=== PATIENT | male | born 1975 | race Caucasian/White ===

== ENCOUNTER 2017-02-03 11:36 | Emergency (ER) | payer SELFPAY ==
[2017-02-03] MEDS ORDERED: PREDNISONE 20 MG TABLET ONE (12:31)
[2017-02-03] MEDS ORDERED: HYDROCODONE/ACETAMINOPHEN 5/325MG TABLET ONE (12:31)
--- NOTE | 2017-02-03 13:18 | RAD ---
Exam: Pelvis and two-view right hip COMPARISON: None INDICATION: Right hip pain for 2 days. Findings: An AP view of the pelvis and AP and frog-leg lateral views of the right hip were obtained. Overall normal bone mineralization. Prominent cortical bone is noted along the lateral aspect of the femoral head and neck junctions bilaterally likely related to underlying femoral acetabular impingement. There is joint space narrowing, actually greater on the left superiorly, and mild osteophyte formation bilaterally. Calcifications are present along the lateral aspect of acetabulum on the right. No acute fracture is identified. Sacroiliac joints are within normal limits and symmetric. Sacral foramen are intact. IMPRESSION: No acute osseous abnormality within the pelvis or right hip. 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 Nonspecific calcifications are noted along lateral aspect of the right acetabulum.
== END 2017-02-03 13:57 | disposition home or self-care (01) ==
LOC: ED 11:36
DX: M16.11 Unilateral primary osteoarthritis, right hip (principal); M25.851 Other specified joint disorders, right hip; F17.210 Nicotine dependence, cigarettes, uncomplicated
CPT/HCPCS: 73502; 99283 ×2; J7512; A9270